=== PATIENT | female | born 1990 | race Caucasian/White ===

== ENCOUNTER → 2025-09-17 12:00 | Outpatient (REF) | payer SELFPAY ==
--- NOTE | 2025-09-17 12:00 | S_PTH ---
PATIENT: Lorenza Jenkins LOC: [facility] U#:[id number] AGE/SX: 35/F ROOM: RE09/17/[address]: Maira Hall PA-C : 1990 BED: DIS: SPEC #: [id number] RECD: 09/17/25 12:09 STATUS: CORNELL REWhit #: [id number] DONTAE: 09/17/25 12:[address]: Maira Hall DEPT: [facility] Surgical RECD BY: Sweta Murrell ENTERED: 09/17/25 12:10 SP TYPE: Surgical OTHR DR: UNKNOWN,DOCTOR Tissues: A - Mass B - Mass Procedures: Hematoxylin and Eosin Stain Gross and Microscopic Level 3
--- OUTSIDE RECORDS SUMMARY | 2025-09-17 12:06 | XMS_ITS | Clinical Summary ---
Author Organization [facility] Address [address] [place] [address] Phone Care Team Providers Care Corporate Strategy Analyst Name Role Phone Unavailable Primary Care Provider Unavailabl e Medications Cranberry 425 MG capsule 1 daily 0 03/12/2016 Active Active Problems Problem Noted Date Diagnosed Date Proteinuria 08/09/2016 Urinary tract infection 05/10/2016 Abnormal finding in urine 03/12/2016 Family History Medical History Relation Comments Diabetes mellitus Father Hypertensive disorder Father Diabetes mellitus Mother Hypertensive disorder Mother Kidney disease Neg Hx Kidney stone Neg Hx Relation Status Comments Father Mother Social History Tobacco Use Types Packs/Day Years Used Date Smoking Tobacco: Some Days Comments Unknown Sex and Gender Information Value Date Recorded Sex Assigned at Not on file Legal Sex Female 9:26 AM MST Gender Identity Not on file Sexual Orientation Not on file Last Filed Vital Signs Vital Sign Reading Time Taken Comments Blood Pressure 112/70 07/18/2016 12:01 AM CDT Pulse 72 07/18/2016 12:01 AM CDT Temperature 36.5 C (97.7 F) 07/18/2016 12:01 AM CDT Respiratory Rate - - Oxygen Saturation - - Inhaled Oxygen Concentration - - Weight 67.6 kg (149 lb) 07/18/2016 12:01 AM CDT Height 175.3 cm (5' 9) 07/18/2016 12:01 AM CDT Body Mass Index 22 07/18/2016 12:01 AM CDT Plan of Treatment Not on file
--- OUTSIDE RECORDS SUMMARY | 2025-09-17 12:06 | XMS_ITS | Clinical Summary ---
Author Organization [facility] Address [facility] [place] [address] Care Team Providers Care Steeler Name Role Phone Crys Luz NP Primary Care Provider [phone] Allergies Active Allergy Reactions Criticality Noted Date Comments Oxycodone Hives 05/01/2017 Sulfamethoxazole-Trimethoprim Rash Medium 2018 Medications Ergocalciferol (VITAMIN D2) 10 MCG (400 UNIT) Tab Take 1 tablet by mouth daily. 01/26/2021 Active HYDROcodone-acet aminophen (NORCO) 5-325 MG tablet Take 1 tablet by mouth every 6 (six) hours as needed. 02/14/2022 Active Norethindrone, Contraceptive, 0.35 MG tablet Take 1 tablet by mouth daily. 03/21/2022 Active vitamin, low iron, ( VITAMIN WITH IRON) 27-0.8 MG tablet Take 1 tablet by mouth daily. Active SUMAtriptan (IMITREX) 25 MG tabletIndication s:Chronic intractable headache, unspecified headache type Take 1 tablet (25 mg total) by mouth 2 (two) times daily as needed for Migraine. Max of 8 tablets (200 mg) in a 24 hour period. 30 tablet 1 06/14/2022 Active Active Problems Problem Noted Date Diagnosed Date Fall 11/30/2020 contractions 11/30/2020 History of uterine scar from previous surgery Proteinuria 08/09/2016 Urinary tract infection 05/10/2016 Abnormal finding in urine 03/12/2016 Immunizations Immunization Administration Dates Next Due Tdap (Generic) 04/28/2018 Family History Medical History Relation Comments Hyperlipidemia Brother Hypertension Brother Hyperlipidemia Father Hypertension Father menieres Father Diabetes Mother Hyperlipidemia Mother Hypertension Mother Cancer Sister gout Sister Relation Status Comments Brother Father Mother Sister Social History Tobacco Use Types Packs/Day Years Used Date Smoking Tobacco: Former Smokeless Tobacco: Never Tobacco Cessation:Counseling Given: No Alcohol Use Standard Drinks/Week Comments No 0 (1 standard drink = 0.6 oz pur e alcohol) AUDIT-C Answer Date Recorded Frequency of Alcohol Consumption Never 01/26/2019 Average Number of Drinks Not on file 019 Frequency of Binge Drinking Not on file 12/30 Comments No Sex and Gender Information Value Date Recorded Sex Assigned at Not on file Legal Sex Female 9:38 AM CDT Gender Identity Not on file Sexual Orientation Not on file Last Filed Vital Signs Vital Sign Reading Time Taken Comments Blood Pressure 118/74 06/17/2023 11:35 AM CDT Pulse 90 06/17/2023 11:35 AM CDT Temperature 36.6 C (97.8 F) 06/17/2023 11:35 AM CDT Respiratory Rate 20 06/17/2023 11:35 AM CDT Oxygen Saturation 98% 06/17/2023 11:35 AM CDT Inhaled Oxygen Concentration - - Weight 79.8 kg (176 lb) 06/17/2023 11:35 AM CDT Height 175.3 cm (5' 9) 06/17/2023 11:35 AM CDT Body Mass Index 25.99 06/17/2023 11:35 AM CDT Plan of Treatment Upcoming Encounters Date Type Department Care Team (Late st Contact Info) Description 09/27/2025 10:00 AM PORCELAIN ENAMEL REPAIRER Office Visit [facility] Family Medicine - [address] [phone] Crys Luz NP [address] [place] [address] Health Maintenance Due Date Last Done Comments Cervical Cancer Screening Pa p Smear (Age 30 to 64) Every 3 Years 1989 Hepatitis C 2007 Hepatitis B Vaccines (1 of 3 - 19+ 3-dose series) 2008 HPV Vaccines (1 - 3-dose SCD M series) 2016 Cervical Cancer Screening Pa p with HPV Testing (Age 30 to 64) Every 5 Years 2019 Cervical Cancer Screening wi th HPV 2019 Annual Physical 06/17/2024 06/17/2023, 05/04/2020, 01/26/2019 COVID-19 Vaccine (1 2024-2 6 season) 2025 Influenza Adult (#1) 2025 DTaP, Tdap and Td Vaccines ( 2 - Td or Tdap) 04/28/2028 04/28/2018 Hepatitis A Vaccines Aged Out No long er eligible based on patient's age to complete this topic Meningococcal B Vaccine Aged Out No l onger eligible based on patient's age to complete this topic Meningococcal Vaccine Aged Out No chavez niki eligible based on patient's age to complete this topic Pneumococcal Vaccine: Pediatrics (0 to 5 Years) and At-Risk Patients (6 to 49 Years) Aged Out No longer eligible b ased on patient's age to complete this topic RSV Immunizations Under 20 Months Aged Out No longer eligible b ased on patient's age to complete this topic Care Teams Steeler Relationship Specialty Start Date End Date [place] [address] PCP - General NURSE PRACTITIONER 01/20/19
--- OUTSIDE RECORDS SUMMARY | 2025-09-17 12:06 | XMS_ITS | Clinical Summary ---
Author Organization [facility] Address [address] [place] [address] Phone Care Team Providers Care Chute Boss Name Role Phone No, Physician Primary Care Provider [phone] Allergies Active Allergy Reactions Criticality Noted Date Comments Sulfamethoxazole-Trimethoprim Rash Medium 2018 Medications No known medications Active Problems Problem Noted Date Diagnosed Date Intrauterine 04/09/2025 Surgical History Surgery Date Site/Laterality Comments DILATION AND CURETTAGE OF UTERUS SECTION Social History Tobacco Use Types Packs/Day Years Used Date Smoking Tobacco: Never Passive Smoke Exposure: Never Smokeless Tobacco: Never Tobacco Cessation:Counseling Given: No Humiliation, Afraid, Rape, and Kick questionnair e Answer Date Recorded Within the last year, have y ou been afraid of your partner or ex-partner? No 04/09/2025 Within the last year, have y ou been humiliated or emotionally abused in other ways by your partner or ex-partner? No Within the last year, have y ou been kicked, hit, slapped, or otherwise physically hurt by your partner or ex-partner? No 04/09/2025 Within the last year, have y ou been raped or forced to have any kind of sexual activity by your partner or ex-partner? No 04/09/2025 AUDIT-C Answer Date Recorded Q1: How often do you have a drink containing alcohol? Never 04/09/2025 Q2: How many drinks containi ng alcohol do you have on a typical day when you are drinking? Patient does not drink Q3: How often do you have si x or more drinks on one occasion? Never 04/09/2025 [facility] - Occupational Stress Questionnaire Answer Date Recorded Do you feel stress - tense, restless, nervous, or anxious, or unable to sleep at night because your mind is troubled all the time - these days? Only a little 04/09/2025 [place] Depression Scale Answer Date Recorded [place] Depression Scale Total 3 04/10/2025 The thought of harming myself has occurred to me . Never 04/10/2025 Personal Safety Answer Date Recorded Have you ever been in or are you currently in a harmful physical or emotional relationship or is someone making you feel afraid or unsafe? Denies 04/09/2025 Comments No Sex and Gender Information Value Date Recorded Sex Assigned at Not on file Legal Sex Female 8:58 PM FITTING ROOM CHECKER Gender Identity Not on file Sexual Orientation Not on file Obstetrics History Para Term AB IAB SAB Ectopic Multiple Livin g Live Births 6 4 3 1 2 0 2 0 1 5 5 Date Outcome GA Total Labor Labor/2nd/3rd Weight Sex Type Anes PTL Christie A1 A5 Name Clin 2014 SAB 2016 34w 6d 4h 00m/ 2.637 kg (5 lb 13 oz) F CS-LT ranv Combin ed Spinal /Epidu ral Y Livin g 6 8 WELLS, GIRL1K ATHERI ISAMAR orozco, K Delivery Location:[facility] Comments:No observed a nomalies 2016 34w 6d 4h 00m/ 3.26 kg (7 lb 3 oz) M CS-LT ranv Combin ed Spinal /Epidu ral Y Livin g 7 8 STACIE CLARKE, K Delivery Location:[facility] Comments:No observed a nomalies 2017 Term 39w 3d 0h 01m 0h 01m 5.018 kg (11 lb 1 oz) M CS-LT ranv Combin ed Spinal /Epidu ral Livin g 7 8 ENRIQUE CLARKE MD Complications:None Delivery Location:[facility] (STLO MOTHER BABY 5C) 0 SAB D&C 2021 Term 38w 1d 0h 02m 0h 02m 4.11 kg (9 lb 1 oz) M CS-LT ranv Spinal Livin g 7 9 ENRIQUE CLARKE MD Complications:None Delivery Location:[facility] (ST LABOR ) 2024 Term 39w 0d 0h 01m 0h 01m 4.365 kg (9 lb 10 oz) M C-Sec tion Spinal N Livin g 8 9 Maryjo Yepez MD Delivery Location:[facility] ([facility] L AND D PROCEDURE) Last Filed Vital Signs Vital Sign Reading Time Taken Comments Blood Pressure 122/66 04/11/2025 8:20 AM CDT Pulse 75 04/11/2025 8:20 AM CDT Temperature 36.4 C (97.6 F) 04/11/2025 8:20 AM CDT Respiratory Rate 18 04/11/2025 8:20 AM CDT Oxygen Saturation 99% 04/11/2025 8:20 AM CDT Inhaled Oxygen Concentration - - Weight 96.2 kg (212 lb) 04/09/2025 5:38 AM CDT Height 175.3 cm (5' 9) 04/09/2025 5:38 AM CDT Body Mass Index 31.31 04/09/2025 5:38 AM CDT Plan of Treatment Health Maintenance Due Date Last Done Comments Cervical Cancer Screening 1989 Hepatitis C Screening 1989 Varicella Vaccines (1 of 2 - 13+ 2-dose series) 2002 Hepatitis B Screening 2007 Regular Well Visit/Exam 18-64 2007 HPV Vaccines (1 - 3-dose SCD M series) 2016 Influenza Vaccine (#1) 2025 Depression Screening 04/10/2026 04/10/2025 DTaP/Tdap/Td Vaccine (2 - Td or Tdap) 04/28/2028 04/28/2018 Pneumococcal vaccine <65 Aged Out No longer eligible based on patient's age to complete this topic Insurance [place] [address] [place] [id number] Advance Directives For more information, please contact: [phone] * Full Code (Latest Code Status on File) Date Activated Date Inactivated Comments 04/09/2025 9:38 AM 04/11/2025 4:14 PM * Full Code Date Activated Date Inactivated Comments 04/09/2025 5:40 AM 04/09/2025 9:38 AM Full CPR in case of cardiopulmonary arrest * Full Code Date Activated Date Inactivated Comments 03/23/2019 5:04 AM 03/23/2019 9:13 AM Full CPR in case of cardiopulmonary arrest Care Teams Chute Boss Relationship Specialty Start Date End Date No, Physician PCP - General 03/28/19
--- OUTSIDE RECORDS SUMMARY | 2025-09-17 12:06 | XMS_ITS | Encounter Summary ---
Author Organization [facility] Address [address] [place] [address] Care Team Providers Care Rental Clerk Name Role Phone Crys Luz TRAVEL NURSE Primary Care Provider [phone] Encounter Details Date Type Department Care Team (Late st Contact Info) Description 01/19/2021 [facility] Message Enc [address] [address] Crys Luz NP [address] [place] [address] [phone] RE: Medication Questions Social History Tobacco Use Types Packs/Day Years Used Date Smoking Tobacco: Former Smokeless Tobacco: Never Alcohol Use Standard Drinks/Week Comments No 0 [...] on file Sexual Orientation Not on file COVID-19 Exposure Response Date Recorded In the last month, have you been in contact with someone who was confirmed or suspected to have Coronavirus / COVID-19? No / Unsure 12/27/2020 9:34 AM CDT documented as of this encounter Plan of Treatment Upcoming Encounters Date Type Department Care Team (Late Contact Info) Description 09/27/2025 10:00 AM FUNDRAISING COORDINATOR Office Visit [facility] Family Medicine - [place] [address] [place] [address] Crys Lu[place] [address] documented as of this encounter Visit Diagnoses Not on filedocumented in this encounter Care Teams Rental Clerk Relationship Specialty Start Date End Date Crys Luz [place] [address] PCP - General NURSE PRACTITIONER 01/20/19 documented as of this encounter
== END ==
LOC: ANHLAB 12:00
PROVIDERS: Visit Provider Physician Assistant Surgical
DX: L72.0 Epidermal cyst (principal)
CPT/HCPCS: 88304